=== PATIENT | male | born 1995 | race African-American/Black ===

== ENCOUNTER 2019-03-12 16:54 | Emergency (ER) | payer OTHER, MEDICAID ==
[~2019-03-12] VITALS: Ht 175.3 cm; Wt 72.1 kg
--- OUTSIDE RECORDS SUMMARY | 2019-03-12 16:56 | XMS ---
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 Leonie has no Care Guidelines for this patient. Ramesh VISIT COUNT (12 MO.) [address] [facility] TOTAL 2 NOTE: Visits indicate total known visits. ED/[facility] VISIT TRACKING (12 MO.) 03/12/2019 16:55 [facility] TYPE: Emergency COMPLAINT: - RIGHT SHOULDER INJURY 02/21/2019 12:[address] [facility] TYPE: Emergency COMPLAINT: - RIB PAIN NON INJURY, VOMITING BLOOD DIAGNOSES: - Allergy status to other drugs, medicaments and biological substances status - Nicotine dependence, unspecified, uncomplicated - Hematemesis - Cough INPATIENT VISIT TRACKING (12 MO.) No inpatient visits to display in this time frame [email or web address]
[2019-03-12] MEDS ORDERED: NAPROSYN500 MG PO (18:51)
== END 2019-03-12 19:05 | disposition home or self-care (01) ==
LOC: ED 16:54
DX: M25.512 Pain in left shoulder (principal); F17.200 Nicotine dependence, unspecified, uncomplicated; Z88.8 Allergy status to other drugs, medicaments and biological substances
CPT/HCPCS: 73030; 99283-25

== ENCOUNTER 2019-05-04 00:23 | Emergency (ER) | payer MEDICAID ==
[~2019-05-04] VITALS: Ht 175.3 cm; Wt 72.1 kg
[~2019-05-04 00:23] MED LIST: NAPROSYN500 MG PO
--- OUTSIDE RECORDS SUMMARY | 2019-05-04 00:26 | XMS ---
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 Leonie has no Care Guidelines for this patient. Ramesh VISIT COUNT (12 MO.) 3 [facility] TOTAL 3 NOTE: Visits indicate total known visits. ED/UCC VISIT TRACKING (12 MO.) 05/04/2019 00:23 [facility] TYPE: Emergency COMPLAINT: - HURT KNEE 03/12/2019 16:55 [facility] TYPE: Emergency COMPLAINT: - RIGHT SHOULDER INJURY DIAGNOSES: - Pain in left shoulder - Nicotine dependence, unspecified, uncomplicated - Allergy status to oth drug/meds/biol subst status 02/21/2019 12:10 [facility] TYPE: Emergency COMPLAINT: - RIB PAIN NON INJURY, VOMITING BLOOD DIAGNOSES: - Allergy status to oth drug/meds/biol subst status - Nicotine dependence, unspecified, uncomplicated - Hematemesis - Cough INPATIENT VISIT TRACKING (12 MO.) No inpatient visits to display in this time frame [email or web address]
== END 2019-05-04 01:01 | disposition home or self-care (01) ==
LOC: ED 00:23
DX: S83.92XA Sprain of unspecified site of left knee, initial encounter (principal); F17.200 Nicotine dependence, unspecified, uncomplicated; Z88.8 Allergy status to other drugs, medicaments and biological substances; X50.1XXA Overexertion from prolonged static or awkward postures, initial encounter
CPT/HCPCS: 73560; 99283-25

== ENCOUNTER 2024-10-26 16:30 | Emergency (ER) | payer OTHER ==
[~2024-10-26] VITALS: Ht 175.3 cm; Wt 90.0 kg
--- OUTSIDE RECORDS SUMMARY | 2024-10-26 16:47 | XMS ---
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 Ramesh VISIT COUNT (12 MO.) [facility] TOTAL 1 NOTE: Visits indicate total known visits. ED/UCC VISIT TRACKING (12 MO.) 10/26/2024 16:31 [facility] TYPE: Emergency COMPLAINT: - LACERATION INPATIENT VISIT TRACKING (12 MO.) No inpatient visits to display in this time frame [email or web address]
[2024-10-26] MEDS ORDERED: SERTRALINE HCL100 MG PO (17:11)
[2024-10-26] MEDS ORDERED: QUETIAPINE FUM100 MG PO (17:11)
[2024-10-26] MEDS ORDERED: IBUPROFEN 600 MG TAB PO ONE (18:15)
[2024-10-26] MEDS ORDERED: TETANUS-DIPHTHERIA TOXOIDS/PF 0.5 ML VIAL IM ONE (18:15)
[2024-10-26] MEDS ORDERED: DIPHTH,PERTUSS(ACELL),TET VAC 0.5 ML SYRINGE IM ONE (18:30)
[2024-10-26 19:15] VITALS: BP 125/81
== END 2024-10-26 19:15 | disposition home or self-care (01) ==
LOC: ED 16:30
DX: S61.431A Puncture wound without foreign body of right hand, initial encounter (principal); W26.8XXA Contact with other sharp object(s), not elsewhere classified, initial encounter; J45.909 Unspecified asthma, uncomplicated; F17.200 Nicotine dependence, unspecified, uncomplicated; Z23 Encounter for immunization; Z88.8 Allergy status to other drugs, medicaments and biological substances; Z79.899 Other long term (current) drug therapy
CPT/HCPCS: 73130; 90471; 90715; 99283-25; A9270